=== PATIENT | female | born 1995 | race Caucasian/White ===

== ENCOUNTER 2017-10-26 09:38 | Inpatient (IN) ==
[2017-10-26 10:22] VITALS: BMI 26.2
[2017-10-26] MEDS ORDERED: ACETAMINOPHEN 500 MG TABLET PO PRN ×2 (10:32→21:18)
[2017-10-26] MEDS ORDERED: MAG-AL + SIM ORAL LIQUID 30ml PO PRN ×2 (10:32→21:18)
[2017-10-26] MEDS ORDERED: METHYLERGONOVINE 0.2 MG/ML INJECTION IM PRN (10:32)
[2017-10-26] MEDS ORDERED: CALCIUM CARBONATE Chewable 500mg TABLET PO PRN ×2 (10:32→21:18)
[2017-10-26] MEDS ORDERED: CARBOPROST 250 MCG/ML INJECTION IM PRN (10:32)
[2017-10-26] MEDS ORDERED: LIDOCAINE 1% (10mg/ml) 2mL INJ PF SDV ID PRN (10:32)
[2017-10-26] MEDS: LR 1,000 ML IV PRN ×2 (10:47→13:30)
[2017-10-26] MEDS ORDERED: D5LR 1,000 ML IV SCH (15:45)
[2017-10-26] MEDS ORDERED: D5LR 1,000 ML IV PRN (16:45)
[2017-10-26] MEDS ORDERED: OXYTOCIN DRIP 30 UNIT/500 ML ML IV PRN (16:45)
[2017-10-26] MEDS ORDERED: HYDROCORTISONE 2.5% CREAM 30gm RECTALLY PRN (21:18)
[2017-10-26] MEDS ORDERED: HYDROCODONE/APAP 5mg/325mg TABLET PO PRN (21:18)
[2017-10-26] MEDS ORDERED: OXYTOCIN DRIP 30 UNIT/500 ML ML IV SCH (21:18)
[2017-10-26] MEDS ORDERED: NICOTINE 7 MG PATCH TD PRN (21:18)
[2017-10-26] MEDS ORDERED: DiphenhydrAMINE 25 MG CAPSULE PO PRN (21:18)
[2017-10-26] MEDS: IBUPROFEN 800 MG TABLET PO SCH (21:20)
[2017-10-27] MEDS: IBUPROFEN 800 MG TABLET PO SCH (08:16)
--- NOTE | 2017-10-27 08:51 | Labor and Delivery Note ---
DATE OF DELIVERY 10/26/2017 NARRATIVE Ms. Schwartz presented with ruptured membranes. She was cedrick upon presentation this morning. She changed a couple of centimeters slowly over the next few hours. I then began Pitocin augmentation. She subsequently progressed well in first stage of labor. She began to push with excellent effort at the complete and +2 presentation. She pushed for a few short contractions, delivering the head in the OA presentation and with a further push then delivered the baby in total. Baby was then bulb suctioned and placed on mother's abdomen. After almost three minutes the cord was doubly clamped. It was then cut by baby's father, Hemal. This is a liveborn male with Apgars of 8/9/9. He weighed 7 pounds, 4.2 ounces. After about 25 minutes the placenta delivered spontaneously intact. It had a normal configuration and normal-appearing three-vessel cord. Total blood loss was approximately 300 mL. There was a superficial midline laceration that was hemostatic and was not repaired. At the time of this dictation mother and baby are doing well status. [facility]ITALJamie
[2017-10-27] MEDS ORDERED: NICOTINE PATCH REMOVAL TD SCH (09:00)
[2017-10-27] MEDS ORDERED: DOCUSATE CALCIUM 240 MG CAPSULE PO SCH (09:00)
--- NOTE | 2017-10-27 11:19 | OB/GYN Progress Note ---
OB-PP Progress Note - General PPD1 Maternal Group B Strep: Negative Maternal blood type: O+ Maternal Rubella Status: Immune - Subjective Date: 10/27/17 Lochia: Minimal Pain: controlled Voiding: voiding Nausea or Vomiting Present: No - Objective Vital Signs: Last Vital Signs Temp 98.3 F 10/27/17 09:15 Pulse 75 10/27/17 09:15 Resp 14 10/27/17 09:15 BP 117/67 10/27/17 09:15 Pulse Ox 100 10/27/17 09:15 General: alert and oriented Abdomen: fundus firm, non-tender Extremities: non-tender Edema: none - Assessment Assessment: SP, Comments: Pt would like to go home tonight. - Plan Plan: routine care, discharge home Expected date of discharge: 10/27/17
[2017-10-27 18:06] VITALS: BP 115/68; PULSE 82; RESP 16; TEMP 97.9; O2SAT 99
== END 2017-10-27 21:36 | disposition home or self-care (01) | DRG 775 ==
LOC: OBOBS 09:38 → MC 09:38 → OBSVTOIN 10:02
PROVIDERS: ADMIT Obstetrics & Gynecology; ATTEND Obstetrics & Gynecology